=== PATIENT | male | born 1970 | race Caucasian/White ===

== ENCOUNTER 2019-10-18 11:38 | Emergency (ER) | payer OTHER ==
--- OUTSIDE RECORDS SUMMARY | 2019-10-18 11:41 | XMS REPORT ---
:1970 Author Organization eClinicalWorks Care Team Providers Name Role Phone Grant May Provider Role Unavailable Allergies, Adverse Reactions, Alerts Substance Reaction Event Type N.K.D.A. 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 Problem Unspecified visual loss H54.7 Active Problem Type 2 diabetes mellitus with other E11.29 Active diabetic kidney complication Problem Type 2 diabetes mellitus with E11.319 Active 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 macular edema Assessment Noncompliance w/medication Z91.14 Active treatment due to intermit use of medication Assessment Unspecified visual loss H54.7 Active Assessment Proteinuria, unspecified R80.9 Active Assessment Adult BMI 35.0-35.9 kg/sq m Z68.35 Active Assessment Mixed hyperlipidemia E78.2 Active Assessment Type 2 diabetes mellitus with other E11.29 Active diabetic kidney complication Assessment HTN, goal below 130/80 I10 Active Medications Medication Code Code Instructions Start End Status Dosage System Date Date Amlodipine [facility] 08305216514 10 MG Orally Active 1 tablet Besylate Once a day at bedtime Fenofibrate ND 19972245067 145 MG Orally Active 1 tablet Once a day with food Farxiga ND 07311266736 5mg By Mouth Jun 15, Inactive 1 2018 Zocor [facility] 88819775465 40 MG Orally Active 1 tablet Once a day in the evening Lisinopril ND 32549182409 40 MG Orally Active 1 tablet Twice a day Metformin HCl ND 90112599991 1000 MG Orally Active 1 tablet Twice a day with a meal Victoza [facility] 91317398328 18 MG/3ML Active inject 1.8 Subcutaneous mg/day. Once a day Farxiga [facility] 69548474234 10mg By Mouth Jun 15Sep 13, Active 1 Daily 2018 2019 Metoprolol [facility] 55047269528 100 MG Orally Active 1 tablet Tartrate Twice a day with food Results No Known Results Summary Purpose eClinicalWorks Submission
--- OUTSIDE RECORDS SUMMARY | 2019-10-18 11:41 | XMS REPORT ---
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
--- OUTSIDE RECORDS SUMMARY | 2019-10-18 11:41 | XMS REPORT ---
:1970 Author Organization eClinicalWorks Care Team Providers Name Role Phone Lalo Grant Provider Role Unavailable Allergies, Adverse Reactions, Alerts Substance Reaction Event Type N.K.D.A. Info Not Available Non Drug Allergy Problems Problem Type Condition Code Onset Dates Condition Status Assessment Influenza A J10.1 Active Problem HTN, goal below 130/80 I10 Active Assessment Upper respiratory tract infection, J06.9 Active unspecified type Problem Adult BMI 35.0-35.9 kg/sq m Z68.35 [...] 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 macular edema Medications Medication Code Code Instructions Start End Status Dosage System Date Date [facility] 37155858041 5mg By Mouth Active 1 Dailly Lisinopril [facility] 14552420965 40 MG Orally Active 1 tablet Twice a day Zocor [facility] 07549146207 40 MG Orally Active 1 tablet Once a day in the evening Tamiflu ND 66265080175 75 MG Orally May 30, Active 1 capsule Twice a day 2018 Victoza [facility] 99834871482 18 MG/3ML Active inject 1.8 Subcutaneous mg/day. Once a day Amlodipine [facility] 06327194653 10 MG Orally Active 1 tablet Besylate Once a day at bedtime Metoprolol [facility] 85368073798 100 MG Orally Active 1 tablet Tartrate Twice a day with food Fenofibrate [facility] 69863032651 145 MG Orally Active 1 tablet Once a day with food Metformin HCl ND 43460635221 1000 MG Orally Active 1 tablet Twice a day with a meal Results Name Result Date Reference Range Unit Abnormality Flag FLU TEST A/B ----A Pos [id number] ----B Neg [id number] Summary Purpose eClinicalWorks Submission
[2019-10-18] MEDS ORDERED: LIDOCAINE 1% W/EPI 1:100,000 MDV 50 ML VIAL ONE (12:28)
[2019-10-18] MEDS ORDERED: TETANUS & DIPHTHERIA TOX,ADULT 0.5 ML VIAL ONE (12:41)
--- NOTE | 2019-10-18 13:27 | RAD REPORT ---
EXAM DESCRIPTION: CT - Head Brain Wo Cont - 10/18/2019 1:10 pm CLINICAL HISTORY: Headache status post head injury COMPARISON: None. TECHNIQUE: Computed axial tomography of the head was obtained. IV contrast was not requested. All CT scans are performed using dose optimization technique as appropriate and may include automated exposure control or mA/KV adjustment according to patient size. FINDINGS: An intracranial bleed is not seen . Mild frontal scalp swelling The ventricles are normal in caliber. No extra-axial fluid collection is noted. Fluid within the sinuses/ mastoids is not seen. IMPRESSION: No acute intracranial abnormality is seen. If patient's symptoms persist MRI of the bra in would be recommended.
--- NOTE | 2019-10-18 13:40 | ER ---
Nurse's Notes [facility] Name: Dada Fraser Age: 48 yrs Sex: Male : 1970 Arrival Date: 10/18/2019 Time: 11:41 Bed 20 Private MD: Diagnosis: Acute post-traumatic headache;Laceration without foreign body of unspecified part of head Presentation: 10/17 11:43 Chief complaint: He was splitting wood with a hydraulic wood splitter, piece of wood hb flew up and hit him on the forehead. Laceration to forehead noted. Denies LOC. Coronavirus screen: Patient denies fever greater than 100.4F, cough, shortness of breath, or difficulty breathing. Proceed with normal triage process. Ebola Screen: No symptoms or risks identified at this time. Complicating Factors: There are no complicating factors for this patient. Initial Sepsis Screen: Does the patient meet any 2 criteria? No. Patient's initial sepsis screen is negative. Does the patient have a suspected source of infection? No. Patient's initial sepsis screen is negative. Risk Assessment: Do you want to hurt yourself or someone else? Patient reports no desire to harm self or others. 11:43 Method Of Arrival: Wheelchair hb 11:43 Acuity: KERRY 4 hb Historical: - Allergies: 11:46 No Known Allergies; hb - PMHx: 11:46 Diabetes - NIDDM; Hypertension; hb - Immunization history:: Last tetanus immunization: > 10 years ago. - Social history:: Smoking status: Patient denies any tobacco usage or history of. Patient uses Patient/guardian denies using alcohol, street drugs, The patient lives with family. - Family history:: not pertinent. Screenin:52 Abuse screen: Denies threats or abuse. Nutritional screening: No deficits noted. tw2 Tuberculosis screening: No symptoms or risk factors identified. 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 Assessment: 12:19 Reassessment: provider at bedside at this time. tw2 13:20 Reassessment: Patient appears in no apparent distress at this time. No changes from tw2 previously documented assessment. Patient and/or family updated on plan of care and expected duration. Pain level reassessed. Patient is alert, oriented x 3, equal unlabored respirations, skin warm/dry/pink. 14:20 Reassessment: Patient appears in no apparent distress at this time. No changes from tw2 previously documented assessment. Patient and/or family updated on plan of care and expected duration. Pain level reassessed. Patient is alert, oriented x 3, equal unlabored respirations, skin warm/dry/pink. Vital Signs: 11:43 BP 184 / 103; Pulse 84; Resp 16; Temp 97.2; Pulse Ox 100% on R/A; Weight 111.13 kg; hb Height 5 ft. 9 in. (175.26 cm); Pain 4/10; 13:19 BP 133 / 87; Pulse 57; Resp 17; Pulse Ox 98% on R/A; tw2 11:43 Body Mass Index 36.18 (111.13 kg, 175.26 cm) hb ED Course: 11:41 Patient arrived in ED. mr 11:45 Triage completed. hb 11:46 Arm band placed on. hb 11:46 Bed in low position. Call light in reach. tw2 11:47 Clarissa Arizmendi RN is Primary Nurse. tw2 11:57 Scott Hoover MD is Attending Physician. ma2 13:09 CT Head Brain wo Cont In Process Unspecified. EDMS 14:18 Assist provider with laceration repair. IV discontinued, intact, bleeding controlled, tw2 No redness/swelling at site. Pressure dressing applied. 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 Exp: 08/11/2021. Lot #: [id number]. } Route: IM; Site: right deltoid; 13:03 Follow up: Response: No adverse reaction tw2 13:02 Drug: Lidocaine-Epinephrine -1%: (1:100,000) 20 ml {Note: by Dr. Schutlz.} Volume: 20 tw2 ml; Route: Infiltration; Outcome: 13:39 Discharge ordered by . ma2 14:19 Discharged to home via wheelchair, with family. tw2 14:19 Condition: stable 14:19 Discharge instructions given to patient, Instructed on discharge instructions, follow up and referral plans. medication usage, wound care, Demonstrated understanding of instructions, follow-up care, medications, wound care, Prescriptions given X 1. 14:20 Patient left the ED. tw2 Signatures: Dispatcher [employer] EDMS BharathiKiara Heather, RN RN hb Clarissa Arizmendi RN RN tw2 Scott Hoover MD MD ma2
--- NOTE | 2019-10-18 13:40 | EDPHYS ---
Physician Documentation [facility] Name: Dada Fraser Age: 48 yrs Sex: Male : 1970 Arrival Date: 10/18/2019 Time: 11:41 Bed 20 Private MD: ED Physician Scott Hoover HPI: 10/17 12:31 This 48 yrs old Male presents to ER via Wheelchair with complaints of ma2 Laceration To Forehead, Dizziness. 12:31 The patient has a laceration occurred at home. The laceration(s) is(are) located on the ma2 face. Onset: The symptoms/episode began/occurred suddenly, 1 hour(s) ago. Associated signs and symptoms: Pertinent negatives: dizziness, loss of consciousness, suspected foreign body. The patient has not experienced similar symptoms in the past. Historical: - Allergies: 11:46 No Known Allergies; hb - PMHx: 11:46 Diabetes - NIDDM; Hypertension; hb - Immunization history:: Last tetanus immunization: > 10 years ago. - Social history:: Smoking status: Patient denies any tobacco usage or history of. Patient uses Patient/guardian denies using alcohol, street drugs, The patient lives with family. - Family history:: not pertinent. ROS: 12:31 Constitutional: Negative for fever, chills, and weight loss. ma2 12:31 All other systems are negative. Exam: 12:31 Constitutional: This is a well developed, well nourished patient who is awake, alert, ma2 and in no acute distress. Head/Face: laceration vertical on forehead 3 cm long, clean, abrasion to right eyebraw. Eyes: Pupils equal round and reactive to light, extra-ocular motions intact. Lids and lashes normal. Conjunctiva and sclera are non-icteric and not injected. Cornea within normal limits. Periorbital areas with no swelling, redness, or edema. ENT: Nares patent. No nasal discharge, no septal abnormalities noted. Tympanic membranes are normal and external auditory canals are clear. Oropharynx with no redness, swelling, or masses, exudates, or evidence of obstruction, uvula midline. Mucous membranes moist. Neck: Trachea midline, no thyromegaly or masses palpated, and no cervical lymphadenopathy. Supple, full range of motion without nuchal rigidity, or vertebral point tenderness. No Meningismus. Chest/axilla: Normal chest wall appearance and motion. Nontender with no deformity. No lesions are appreciated. Cardiovascular: Regular rate and rhythm with a normal S1 and S2. No gallops, murmurs, or rubs. Normal PMI, no JVD. No pulse deficits. Respiratory: Lungs have equal breath sounds bilaterally, clear to auscultation and percussion. No rales, rhonchi or wheezes noted. No increased work of breathing, no retractions or nasal flaring. Abdomen/GI: Soft, non-tender, with normal bowel sounds. No distension or tympany. No guarding or rebound. No evidence of tenderness throughout. Back: No spinal tenderness. No costovertebral tenderness. Full range of motion. Skin: Warm, dry with normal turgor. Normal color with no rashes, no lesions, and no evidence of cellulitis. MS/ Extremity: Pulses equal, no cyanosis. Neurovascular intact. Full, normal range of motion. Neuro: Awake and alert, GCS 15, oriented to person, place, time, and situation. Cranial nerves II-XII grossly intact. Motor strength 5/5 in all extremities. Sensory grossly intact. Cerebellar exam normal. Normal gait. Vital Signs: 11:43 BP 184 / 103; Pulse 84; Resp 16; Temp 97.2; Pulse Ox 100% on R/A; Weight 111.13 kg; hb Height 5 ft. 9 in. (175.26 cm); Pain 4/10; 13:19 BP 133 / 87; Pulse 57; Resp 17; Pulse Ox 98% on R/A; tw2 11:43 Body Mass Index 36.18 (111.13 kg, 175.26 cm) hb Laceration: 13:15 Wound Repair of 3cm ( 1.2in ) subcutaneous laceration to face. Distal ma2 neuro/vascular/tendon intact. Anesthesia: Local anesthetic administered with 10 mls of 1% lidocaine w/ Epi. Wound prep: Simple cleansing, Moderate cleansing. Skin closed with 7 4-0 Prolene using simple sutures and sterile technique. Dressed with Bacitracin. Patient tolerated well. MDM: 12:13 Patient medically screened. ma2 13:15 Differential diagnosis: superficial laceration, tendon injury, vascular injury. Data ma2 reviewed: vital signs, nurses notes. Counseling: I had a detailed discussion with the patient and/or guardian regarding: the historical points, exam findings, and any diagnostic results supporting the discharge/admit diagnosis, the presence of at least one elevated blood pressure reading (>120/80) during this emergency department visit, the need for outpatient follow up. Response to treatment: the patient's symptoms have markedly improved after treatment. 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 Exp: tw2 08/11/2021. Lot #: [id number]. } Route: IM; Site: right deltoid; 13:03 Follow up: Response: No adverse reaction 13:02 Drug: Lidocaine-Epinephrine -1%: (1:100,000) 20 ml {Note: by Dr. Schultz.} Volume: 20 tw2 ml; Route: Infiltration; Disposition: 10/18/19 13:39 Discharged to Home. Impression: Acute post-traumatic headache, Laceration without foreign body of unspecified part of head. - Condition is Stable. - Discharge Instructions: Facial Laceration, [id number]. - Prescriptions for Bactrim DS 800- 160 mg Oral Tablet - take 1 tablet by ORAL route every 12 hours for 5 days; 10 tablet. - Medication Reconciliation Form, Thank You Letter, Antibiotic Education, Prescription Opioid Use form. - Follow up: Private Physician; When: Tomorrow; Reason: Continuance of care. - Notes: remove sutures in 4 day Signatures: Dispatcher [employer] EDMS Kate Larsen RN RN hb Wise, Tara, RN RN tw2 Scott Hoover MD MD ma2 Corrections: (The following items were deleted from the chart) 14:20 13:39 10/18/2019 13:39 Discharged to Home. Impression: Acute post-traumatic headache; tw2 Laceration without foreign body of unspecified part of head. Condition is Stable. Discharge Instructions: Facial Laceration, [id number]. Prescriptions for Bactrim DS 800-160 mg Oral Tablet - take 1 tablet by ORAL route every 12 hours for 5 days; 10 tablet. and Forms are Medication Reconciliation Form, Thank You Letter, Antibiotic Education, Prescription Opioid Use. Follow up: Private Physician; When: Tomorrow; Reason: Continuance of care. ma2
[2019-10-18 14:26] VITALS: TEMP 97.2
[2019-10-18 14:27] VITALS: BP 133/87; O2SAT 98
== END 2019-10-18 14:20 | disposition home or self-care (01) ==
LOC: ER 11:38
PROC: 0JQ10ZZ Repair Face Subcutaneous Tissue and Fascia, Open Approach (ICD-10-PCS; principal; 2019-10-18)
DX: S01.81XA Laceration without foreign body of other part of head, initial encounter (principal); X58.XXXA Exposure to other specified factors, initial encounter; Y93.9 Activity, unspecified; Y92.009 Unspecified place in unspecified non-institutional (private) residence as the place of occurrence of the external cause; Z23 Encounter for immunization
CPT/HCPCS: 70450; 90471; 90714; 99284